=== PATIENT | male | born 1990 | race Caucasian/White ===

== ENCOUNTER 2017-07-05 09:53 | Emergency (ER) | payer SELFPAY ==
[2017-07-05] MEDS ORDERED: KETOROLAC 30 MG/ML VIAL IVP ONE (10:16)
--- NOTE | 2017-07-05 10:20 | Emergency Department Record ---
History of Present Illness - General Chief Complaint: Chest Pain Stated Complaint: CHEST ISSUES Time Seen by Provider: 07/05/17 10:08 Source: Patient Mode of Arrival: Ambulatory Limitations: No limitations - History of Present Illness Initial Comments: The patient is here due to sharp L sided CP over the last 12 hours. The pain onset was at rest last night and was a sharp pain in the L retrosternal area. There was no DEX, Sweating, or nausea with the pain. It then resolved spontaneously and he then developed mild L rib sharp stabbing pain. That pain has not resolved so he decided to get it checked out. He has had no CP with exertion, GARCIA or any recent illnesses. The patient does not have any cardiac risk factors. He did smoke for about 5 years but quit 2 years ago. Onset/Timin -: Hour(s) Onset: Other Pain Location: Left chest Severity: Moderate Severity scale (1-10): 6 Quality: Sharp, Other Consistency: Constant Worsens With: Palpation Treatments Prior to Arrival: None - Related Data Previous Rx's Medication Instructions Recorded Acyclovir 800 mg PO Q4HR #25 tablet 07/05/17 Naproxen [Naprosyn] 500 mg PO BID #14 tablet. 07/05/17 Allergies Allergy/AdvReac Type Severity Reaction Status Date / Time No Known Drug Allergies Allergy Verified 07/05/17 10:08 Travel Screening - Travel/Exposure Within Last 30 Days Have you traveled within the last 30 days?: No - Travel/Exposure Within Last Year Have you traveled outside the [place] in the last year?: No - Additonal Travel Details Have you been exposed to anyone with a communicable illness?: No - Travel Symptoms Symptom Screening: None Review of Systems Constitutional: Denies: Chills, Fever Eyes: Denies: Eye discharge ENT: Denies: Congestion Respiratory: Denies: Cough, Dyspnea Past Medical History - SOCIAL HISTORY Smoking Status: Former smoker Alcohol Use: None Drug Use: None - RESPIRATORY Hx Respiratory Disorders: No - CARDIOVASCULAR Hx Cardio Disorders: No - NEURO Hx Neuro Disorders: Yes Comment:: a few concussions - GI Hx GI Disorders: No Comment:: possible hernia - Hx Genitourinary Disorders: No - ENDOCRINE Hx Endocrine Disorders: No - MUSCULOSKELETAL Hx Musculoskeletal Disorders: No - PSYCH Hx Psych Problems: No - HEMATOLOGY/ONCOLOGY Hx Hematology/Oncology Disorders: No Family Medical History Any Significant Family History?: No Hx Cancer: Mother Hx HTN: Mother Physical Exam - General General Appearance: Alert, Oriented x3, Cooperative, No acute distress - Head Head exam: Atraumatic, Normocephalic, Normal inspection - Eye Eye exam: Normal appearance, PERRL - ENT Throat exam: Normal inspection. negative: Tonsillar erythema, Tonsillar exudate - Neck Neck exam: Normal inspection, Full ROM. negative: Tenderness - Respiratory Respiratory exam: Normal lung sounds bilaterally, Chest wall tenderness (The L sided sharp pain is 100% reproducible with palpation of the L rib area.). negative: Respiratory distress - Cardiovascular Cardiovascular Exam: Regular rate, Normal rhythm, Normal heart sounds. negative : Diastolic murmur, Systolic murmur - GI/Abdominal GI/Abdominal exam: Soft, Normal bowel sounds. negative: Tenderness - Extremities Extremities exam: Normal inspection, Full ROM, Normal capillary refill. negative: Tenderness Image of Full Body: 1 - Exquisite tenderness to palpation. - Neurological Neurological exam: Alert, Normal gait. negative: Abnormal gait, Motor sensory deficit Course Vital Signs 07/05/17 09:57 Temperature 97.9 F Pulse Rate 95 H Respiratory 18 Rate Blood Pressure 130/99 Pulse Ox 97 - Reevaluation(s) Reevaluation #1: The patient is doing better at this time. His pain is improved with the Toradol. At this time he is resting comfortably but still has pain with any palpation of the L chest wall. He is developing a faint erythematous blotchy rash over the L T4 dermatome and also to the L upper back. I did explain to him this could be very early shingles also but only time will tell. Presently the rash seems to be fading. I also did explain to him that his test results are all WNL's and we will place him on Naprosyn for pain and an antiviral for the possible early shingles. 07/05/17 10:56 Medical Decision Making - Data Complexity MDM Data: Labs Ordered and/or Reviewed, X-Ray Ordered and/or Reviewed, EKG Ordered and/or Reviewed - Lab Data Result diagrams: 07/05/17 10:10 07/05/17 10:10 - EKG Data -: EKG Interpreted by Me EKG: No Acute Changes, Normal EKG - Radiology Data Radiology results: Report reviewed (CXR: Neg.) Disposition Disposition: Discharge Clinical Impression: Chest wall pain Disposition: Home, Self-Care Condition: (2) Stable Instructions: Chest Wall Pain (ED) Additional Instructions: Please take the Naprosyn for pain and also the Acyclovir for the possible early shingles. Please see your family doctor for recheck later this week and return to the ER for any worsening symptoms. Prescriptions: Acyclovir 800 mg PO Q4HR #25 tablet Naproxen [Naprosyn] 500 mg PO BID #14 tablet.dr Forms: Patient Portal Access Time of Disposition: 11:02 Quality - Quality Measures Quality Measures: N/A - Blood Pressure Screening View Details: Yes Does Patient Have Any of the Following: No Blood Pressure Classification: Normal BP Reading Systolic Measurement: 111 Diastolic Measurement: 75 Screening for High Blood Pressure: < Normal BP, F/U Not Required > [[id number]]
[2017-07-05 10:23] LABS: BASO % 0.2 % (0-6); EOS % 0.8 % (0-6); GRAN % 64.3 % (47-80); HEMATOCRIT 41.8 % (42.0-52.0); HEMOGLOBIN 14.7 gm/dl (14.0-18.0); LYMPH % 27.8 % (16-45); MEAN CELL VOLUME 79.6 fl (81-97); MEAN CORPUSCULAR HGB CONC 35.2 g/dl (32-36); MEAN PLATELET VOLUME 9.4 fl (7.4-10.4); MONO % 6.9 % (0-9); PLATELET COUNT 192 K/uL (130-400); RED BLOOD COUNT 5.25 M/uL (4.40-5.70); RED CELL DISTRIBUTION WIDTH 12.5 % (11.5-14.5)
[2017-07-05 10:32] LABS: BLOOD UREA NITROGEN 9 mg/dL (6-20); CREATININE 0.9 mg/dL (0.7-1.2); EST GLOMERULAR FILTRATION RATE > 60 mL/min
[2017-07-05 10:35] LABS: GLUCOSE,RANDOM 158 mg/dL (74-109)
[2017-07-05 10:36] LABS: INR 1.1; PARTIAL THROMBOPLASTIN TIME 26.9 SECONDS (24.5-39.1); PROTHROMBIN TIME (PATIENT) 11.5 SECONDS (9.5-12.1)
[2017-07-05 10:38] LABS: CREATINE PHOSPHOKINASE 259 U/L (39-308)
[2017-07-05 10:39] LABS: CKMB 7.3 ng/mL (<6.73)
[2017-07-05 10:44] LABS: CKMB RELATIVE INDEX 2.32 % (0-4)
--- NOTE | 2017-07-05 15:00 | RADIOLOGY REPORT ---
EXAM: CHEST, TWO VIEWS HISTORY: SUDDEN ONSET LEFT SIDED CHEST PAIN, NO KNOWN INJURY. TECHNIQUE: PA and lateral views of the chest were obtained. Comparison: None. FINDINGS: The heart size is normal. No acute infiltrate identified. No pleural effusion or pneumothorax seen. IMPRESSION: THE CHEST APPEARS NEGATIVE. JOB NUMBER: [id number] MTDD
== END 2017-07-05 11:14 | disposition home or self-care (01) ==
LOC: ER 09:53
DX: R07.89 Other chest pain (principal); R21 Rash and other nonspecific skin eruption; Z87.891 Personal history of nicotine dependence
CPT/HCPCS: 99284 ×2; 96374; 82550; 85025; 85730; 85610; 82553; 80048; 84484; 85379; 71046; 93005; 93010; J1885